=== PATIENT | female | born 1980 | race Caucasian/White ===

== ENCOUNTER 2022-11-07 09:53 | Emergency (ER) | payer OTHER, SELFPAY ==
[2022-11-07 10:26] LABS: Bilirubin Small (Negative); Blood, Urine Large (Negative); Clarity Clear (Clear); Glucose, Urine (Dipstick) Negative (Negative); Ketone, Urine 40 mg/dL (Negative); Leukocyte Negative (Negative); Nitrite Negative (Negative); Protein, Urine (Dipstick) Trace mg/dL (Neg-Trace); Urobilinogen 0.2 mg/dL (Less than 2); pH, Urine 5.5 (5.0-9.0)
[2022-11-07 10:27] LABS: Specific Gravity, Urine 1.026 (1.002-1.036)
[2022-11-07 10:46] LABS: #Basophils 0.1 thou/uL (0.0-0.2); #Eosinphils 0.1 thou/uL (0.0-0.7); #Lymphocytes 1.4 thou/uL (1.20-3.40); #Monocytes 0.5 thou/uL (0.11-0.59); #Neutrophils 9.9 thou/uL (1.40-6.50); %Basophils 0.5 % (0.0-1.0); %Eosinophils 0.5 % (0.0-10.0); %Lymphocytes 11.3 % (21.0-51.0); %Monocytes 4.4 % (0.0-10.0); %Neutrophils 83.3 % (42.0-75.0); Hemoglobin 14.8 g/dL (12.0-16.0); Mean Corpuscular HGB CONC 33.4 g/dL (32.0-36.0); Mean Corpuscular Hemoglobin 29.3 pg (27.0-31.0); Mean Corpuscular Volume 87.7 fl (78.0-98.0); Mean Platelet Volume 10.2 fL (7.4-10.4); Platelet Count 259 10x3/uL (130-400); RBC Distribution Width 12.6 % (11.5-14.5); Red Blood Cell (RBC) Count 5.05 mill/uL (4.20-5.40); White Blood Cell (WBC) Count 11.9 10x3/uL (4.8-10.8)
[2022-11-07 10:50] LABS: Bacteria/HPF Rare-Few HPF (None Seen); Mucous/LPF 2+ LPF (<2+); WBC/HPF None Seen HPF (0-3)
[2022-11-07] MEDS ORDERED: Iopamidol 370 76% 100 ML VIAL ONE (10:51)
[2022-11-07] MEDS ORDERED: Lactated Ringer's 1,000 ML ONE (10:57)
[2022-11-07] MEDS ORDERED: Dicyclomine 20 MG/2 ML VIAL ONE (10:57)
[2022-11-07] MEDS ORDERED: Ondansetron PF 4 MG/2 ML Vial ONE (10:57)
[2022-11-07 10:58] LABS: BHCG - Serum Negative (NEGATIVE); Pregs Control Background? CLEAR/WHITE (CLR/WHITE); Pregs Control Bar Appear? YES (CONTROL BAR)
[2022-11-07 11:06] LABS: ALT (SGPT) 12 U/L (8-55); AST (SGOT) 19 U/L (5-34); Albumin 4.2 g/dL (3.5-5.0); Alkaline Phosphatase 26 U/L (40-110); Anion Gap 16 mmol/L (10-20); BUN (Urea Nitrogen) 14 mg/dL (7.0-18.7); Bilirubin, Total 0.5 mg/dL (0.2-1.2); Calc. Creatinine Clearance 0 mL/min (70-130); Calcium 9.3 mg/dL (7.8-10.44); Carbon Dioxide 23 mmol/L (22-29); Chloride 103 mmol/L (98-107); Estimated GFR 87; Globulin 2.8 g/dL (2.4-3.5); Glucose 94 mg/dL (70-105); Lipase 20 U/L (8-78); Potassium 4.1 mmol/L (3.5-5.1); Sodium 138 mmol/L (136-145)
[2022-11-07] MEDS ORDERED: Ketorolac Tromethamine 30 MG/ML VIAL ONE (12:07)
== END 2022-11-07 13:06 | disposition home or self-care (01) ==
LOC: MADERS 09:53
DX: K52.9 Noninfective gastroenteritis and colitis, unspecified (principal)
CPT/HCPCS: 74177; 80053; 81003; 81015; 83605; 83690; 84703; 85025; 93005; 94760; 96361; 96372; 96374; 96375; J1885; J2405; J7120; Q9967